=== PATIENT | male | born 1955 | race Caucasian/White ===

== ENCOUNTER 2022-02-20 16:32 | Emergency (ER) | payer SELFPAY ==
[2022-02-20 17:15] VITALS: BP 170/75; PULSE 70; RESP 14; TEMP 37; O2SAT 98; BMI 28.0
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
[2022-02-20] MEDS: HYDROcodone-acetaminophen 7.5-325 mg Tablet 1 TAB PO (17:51)
[2022-02-20] MEDS: ketorolac 30 mg/mL INJ IM (17:51)
== END 2022-02-20 19:01 | disposition home or self-care (01) ==
PROVIDERS: Emergency Provider Nurse Practitioner Family
DX: S39.012A Strain of muscle, fascia and tendon of lower back, initial encounter (principal); V53.5XXA Driver of pick-up truck or van injured in collision with car, pick-up truck or van in traffic accident, initial encounter
CPT/HCPCS: 72125; 72131; 73502; 96372; 99284; J1885